=== PATIENT | female | born 1985 | race Asian ===

== ENCOUNTER 2019-02-28 03:16 | Emergency (ER) | payer MEDICAID ==
[~2019-02-28] VITALS: Ht 152.4 cm; Wt 44.5 kg
[2019-02-28 03:25] VITALS: Ht 152.4 cm; Wt 44.5 kg
[2019-02-28 05:01] LABS: UA SPECIFIC GRAVITY >=1.030 (1.005-1.035); microscopic required? YES; urine erythrocyte 3+ (NEGATIVE)
[2019-02-28 05:43] VITALS: BP 110/72
== END 2019-02-28 05:43 | disposition home or self-care (01) ==
LOC: ED 03:16
PROVIDERS: Emergency Medicine
DX: N39.0 Urinary tract infection, site not specified (principal)

== ENCOUNTER 2019-03-24 13:35 | Emergency (ER) | payer SELFPAY ==
[~2019-03-24] VITALS: Ht 149.9 cm; Wt 43.1 kg
[2019-03-24 13:41] VITALS: BP 125/85; Ht 149.9 cm; Wt 43.1 kg
== END 2019-03-24 14:22 | disposition home or self-care (01) ==
LOC: ED 13:35
DX: N39.0 Urinary tract infection, site not specified (principal)